=== PATIENT | female | born 1980 | race Caucasian/White ===

== ENCOUNTER 2017-04-07 06:00 | Inpatient (IN) | payer OTHER ==
[2017-04-07] MEDS ORDERED: EPSOM SALT 454 GM TP PRN (06:43)
[2017-04-07] MEDS ORDERED: AMPICILLIN SODIUM 2 GM in NS 100 ML IV ONE (06:43)
[2017-04-07] MEDS ORDERED: OXYTOCIN/RINGERS LACTATE 1,000 ML IV PRN (06:43)
[2017-04-07] MEDS ORDERED: LR 1,000 ML IV PRN (06:43)
[2017-04-07] MEDS ORDERED: TERBUTALINE SULFATE 1 MG/ML VIAL IV PRN (06:43)
[2017-04-07] MEDS ORDERED: OLIVE OIL 118 ML BTL MISC PRN (06:43)
[2017-04-07 07:03] LABS: % IMMATURE GRANULYOCYTES 0.8 % (0.0-1.1); ABSOLUTE IMMATURE GRANULOCYTES 0.09 10^3/uL (0.00-0.10); ADD DIFF? NO; ADD MORPH? NO; ADD SCAN? NO; ATYPICAL LYMPHOCYTE FLAG 0 (0-99); FRAGMENT RBC FLAG 0 (0-99); HEMATOCRIT 37.8 % (38.0-47.0); HEMOGLOBIN 13.1 g/dL (12.6-16.3); LEFT SHIFT FLG 0 (0-99); LIPEMIA HEMOLYSIS FLAG 90 (0-99); MEAN CELL HEMOGLOBIN CONCENTR. 34.7 g/dL (32.4-36.7); MEAN CELL VOLUME 95.2 fL (81.5-99.8); MEAN PLATELET VOLUME 9.5 fL (8.7-11.7); PLATELET CLUMPS FLAG 0 (0-99); PLATELET COUNT 139 10^3/uL (150-400); RED BLOOD CELL COUNT 3.97 10^6/uL (4.18-5.33); RED CELL DISTRIBUTION WIDTH 13.3 % (11.5-15.2)
[2017-04-07] MEDS ORDERED: OXYTOCIN/LR *STANDARD DOSE PROTOCOL IV SCH (07:30)
[2017-04-07] MEDS: AMPICILLIN SODIUM 1 GM in NS 100 ML IV SCH ×3 (11:12→19:17)
[2017-04-07] MEDS ORDERED: fentanYL 4MCG/ML/BUP 0.0625% RTU 250 ML BAG EP ONE (12:27)
[2017-04-07] MEDS ORDERED: fentaNYL 100 MCG/2 ML INJ ONE ×2 (12:27→21:32)
[2017-04-07] MEDS ORDERED: PHENYLEPHRINE HCL 100 MCG/ML SYR ONE ×2 (12:28→19:45)
[2017-04-07] MEDS ORDERED: BUPIVACAINE 0.25% 30 ML SDV ONE (12:28)
--- NOTE | 2017-04-07 13:25 | OBPROG ---
OBG Labor Progress Note Assessment/Plan: Assessment: Plan: Subjective: patient comfortable with epidural. AROM - large amount of clear fluid noted. IUPC placed. pitocin at 15 mu. Objective: 04/07/17 06:43 Patient ABO/Rh A NEGATIVE 04/07/17 06:39 - SVE Dilation (cm): 3 Effacement (%): 75 Station: -2 Cherry Current Contraction Pattern: Regular FHR Pattern Variability: Moderate FHR Category: 1 Membranes: AROM Amniotic Fluid Color: Clear - Procedures Non-surgical Procedures: IUPC Oxytocin Orders Assessment - Pre-Induction/Augmentation Assessment Gestational Age: 39 week(s) and 6 day(s) ICD10 Worksheet Patient Problems: Problems Problem Status Onset PPH ( hemorrhage) Acute Post-dates Acute (spontaneous vaginal delivery) Acute
--- NOTE | 2017-04-07 14:19 | GHP ---
[f rep st] HISTORY AND PHYSICAL DATE OF ADMISSION: 04/07/2017 ADMISSION DIAGNOSES: 1. Intrauterine at 39-6/7 weeks' gestation. 2. GBS positive. 3. Desires elective induction. 4. History of retained placenta and hemorrhage. INDICATIONS: Patient is a 37-year-old 3, para 1-0-1-1, who is 39-6/7 weeks' gestation. She has been followed with this for size less than dates. Her most recent ultrasound, her es timated weight was in the 98th percentile with a BPD in the 98th percentile, abdominal circumf erence of 98% percentile, and femoral length 52nd percentile. Patient is 3 cm dilated, 70% effaced, and -3 station and ballotable. She is requesting elective induction of labor for multiple reasons. Patient has been admitted and started on Pitocin. She had received an epidural, which was decided providing adequate pain relief, and her membranes have just been artificially ruptured. PAST MEDICAL HISTORY: History of cervical dysplasia x1. Mild exercise-induced asthma. History of pyelonephritis x2. History of anxiety. MEDICATIONS: vitamins and GHA. SURGICAL HISTORY: [place] tooth extraction, D and C x2, oral surgery. ALLERGIES: Antibiotic she cannot remember the name of, which was used for acne. SOCIAL HISTORY: Patient is . She lives with her . 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 She denies tobacco, alcohol, or drug use. FAMILY MEDICAL HISTORY: Noncontributory. LEHR CUTTER HISTORY: Menarche age 13. Periods every 28 days. She is a 3, para 1-0-1-1. In 2013, she had a spontaneous vaginal delivery of an 8 pounds, 8 ounce female infant at 41 weeks' gest ation. She had an uncomplicated delivery and ; however, she did have a retained placenta w hich necessitated manual removal via D and C, and she had hemorrhage following that. In 09/2015, she had a missed at 6 weeks. She had a D and C after Cytotec failed and she still had retained products of conception. Her current has been uncomplicated with exception o f large for gestational age. Patient does have a remote history of abnormal Pap smear. She had a c olposcopy, but no procedures were done. She does have a history of HPV but denies any history of an y other sexually transmitted diseases. REVIEW OF SYSTEMS: 10-point review of systems is negative. PHYSICAL EXAMINATION: VITAL SIGNS: Stable. GENERAL APPEARANCE: She is alert and oriented x3. Ne uro: Unremarkable. NECK: Unremarkable. HEART: Rate is regular. LUNGS: Clear to auscultation b ilaterally. ABDOMEN: Gravid, nondistended, nontender. EXTREMITIES: Reveal no calf tenderness or edema. PELVIC: She is 3 cm dilated, 70% effaced, and -2 station. Infant is in the vertex presenta tion with heart tracings in the category 1. She is now rubia every 3 minutes. LABORATORY DATA: Patient's labs: Blood type is A negative. Antibody screen negative. Ru nadira immune. GBS positive. HBsAg negative. HIV negative. Her 50 g glucose was 99. ASSESSMENT AND PLAN: A 37-year-old, 3, para 1-0-1-1, who was 39-6/7 weeks' gestation, prese [facility] for elective induction of labor. She has been started on Pitocin. She had artificial rupture o f membranes and has an epidural. We will manage her expectantly. /[id number]/MODL
[2017-04-07] MEDS: ONDANSETRON 4 MG/2 ML VIAL IVP PRN (15:16)
--- NOTE | 2017-04-07 16:48 | OBPROG ---
OBG Labor Progress Note Assessment/Plan: Assessment: Plan: Subjective: patient feels flu like. got zofran for nausea. was feeling more pressure. SVE 5/80/-2. positive scalp stimulation. occasional early decelerations. patient pushed bolus button. will recheck in 2 hours or sooner if indicated. Objective: 04/07/17 06:43 Patient ABO/Rh A NEGATIVE 04/07/17 06:39 - SVE Dilation (cm): 5 Effacement (%): 80 Station: -2 Cherry Current Contraction Pattern: Regular FHR Pattern Variability: Moderate FHR Category: 2 Membranes: AROM Amniotic Fluid Color: Clear - Procedures Non-surgical Procedures: IUPC Oxytocin Orders Assessment - Pre-Induction/Augmentation Assessment Gestational Age: 39 week(s) and 6 day(s) ICD10 Worksheet Patient Problems: Problems Problem Status Onset PPH ( hemorrhage) Acute Post-dates Acute (spontaneous vaginal delivery) Acute
[2017-04-07] MEDS ORDERED: AMMONIA AROMATIC 1 EACH AMP IH ONE (18:40)
[2017-04-07] MEDS ORDERED: OLIVE OIL 118 ML BTL ONE (18:40)
[2017-04-07] MEDS ORDERED: LIDOCAINE 1% 300 MG/30 ML SDV ONE (18:40)
[2017-04-07] MEDS ORDERED: MISOPROSTOL 200 MCG TAB ONE ×2 (18:41→20:15)
[2017-04-07] MEDS ORDERED: TERBUTALINE SULFATE 1 MG/ML VIAL ONE (18:41)
[2017-04-07] MEDS ORDERED: METHYLERGONOVINE MAL 0.2 MG/ML INJ ONE ×3 (19:22→19:41)
[2017-04-07] MEDS ORDERED: ALBUMIN 5% 500 ML BOTTLE IV ONE ×4 (19:33→20:43)
[2017-04-07] MEDS ORDERED: KETAMINE 100 MG/10 ML SYR ONE (20:00)
[2017-04-07] MEDS ORDERED: MIDAZOLAM 2 MG/2 ML VIAL ONE (20:01)
[2017-04-07] MEDS ORDERED: OXYTOCIN 10 UNIT/ML VIAL ONE (20:02)
[2017-04-07] MEDS ORDERED: PROPOFOL/EMULSION 500 MG/50 ML BOTTLE IV ONE (20:18)
[2017-04-07] MEDS ORDERED: ROCURONIUM 50 MG/5 ML VIAL ONE ×2 (20:21)
[2017-04-07] MEDS ORDERED: CEFAZOLIN 2 GM/DEXTROSE/100 ML BAG IV ONE ×2 (20:38→23:02)
[2017-04-07 21:27] LABS: ABSOLUTE NRBC COUNT 0.03 10^3/uL (0-0.01); ADD DIFF? YES; ADD MORPH? YES; ATYPICAL LYMPHOCYTE FLAG 0 (0-99); FRAGMENT RBC FLAG 0 (0-99); LIPEMIA HEMOLYSIS FLAG 80 (0-99); MEAN CELL HEMOGLOBIN 31.7 pg (27.9-34.1); MEAN CELL HEMOGLOBIN CONCENTR. 32.8 g/dL (32.4-36.7); MEAN CELL VOLUME 96.7 fL (81.5-99.8); MEAN PLATELET VOLUME 9.7 fL (8.7-11.7); NRBC-AUTO% 0.1 % (0.0-0.2); PLATELET CLUMPS FLAG 10 (0-99); PLATELET COUNT 107 10^3/uL (150-400); RED BLOOD CELL COUNT 1.83 10^6/uL (4.18-5.33); RED CELL DISTRIBUTION WIDTH 15.7 % (11.5-15.2)
[2017-04-07 21:31] LABS: ADD SCAN? NO; LEFT SHIFT FLG 250 (0-99)
[2017-04-07 21:33] LABS: HEMOGLOBIN 5.8 g/dL (12.6-16.3); INR 2.52 (0.83-1.16); PROTIME(PATIENT) 27.4 SEC (12.0-15.0)
[2017-04-07 21:34] LABS: APTT 77.7 SEC (23.0-38.0); HEMATOCRIT 17.7 % (38.0-47.0)
[2017-04-07 21:35] LABS: ALANINE AMINOTRANSFERASE 16 IU/L (9-52); ALBUMIN 1.8 g/dL (3.5-5.0); ALKALINE PHOSPHATASE 34 IU/L (38-126); ANION GAP 13 mEq/L (8-16); ASPARTATE AMINOTRANSFERASE 22 IU/L (14-46); BILIRUBIN,TOTAL 1.2 mg/dL (0.1-1.4); CALCIUM 6.4 mg/dL (8.5-10.4); CARBON DIOXIDE 13 mEq/l (22-31); CHLORIDE 108 mEq/L (97-110); CREATININE 0.7 mg/dL (0.6-1.0); GLOMERULAR FILTRATION RATE > 60; GLUCOSE 233 mg/dL (70-100); PLATELET COUNT 107 10^3/uL (150-400); POTASSIUM 3.9 mEq/L (3.5-5.2); SODIUM 134 mEq/L (134-144); TOTAL PROTEIN 3.2 g/dL (6.3-8.2)
[2017-04-07 21:54] LABS: PLATELET ESTIMATE DECREASED (ADEQ); POLYCHROMASIA 1+
[2017-04-07] MEDS ORDERED: CALCIUM CHLORIDE 1 GM/10 ML INJ ONE (22:22)
[2017-04-07] MEDS ORDERED: PHENYLEPHRINE 10 MG/ML SDV ONE (22:23)
[2017-04-07] MEDS ORDERED: PETROLAT,WHT/MIN OIL/SOD CHL 3.5 GM OPHT.OINT ONE (22:23)
[2017-04-07] MEDS ORDERED: LIDO/EPI 2% **for epidural** 20 ML SDV ONE (22:23)
[2017-04-07 22:27] LABS: FIBRINOGEN < 60 mg/dL (214-456)
[2017-04-07 22:30] LABS: ABSOLUTE NRBC COUNT 0.09 10^3/uL (0-0.01); ADD DIFF? YES; ADD MORPH? NO; ATYPICAL LYMPHOCYTE FLAG 0 (0-99); FRAGMENT RBC FLAG 0 (0-99); HEMATOCRIT 29.7 % (38.0-47.0); LIPEMIA HEMOLYSIS FLAG 80 (0-99); MEAN CELL HEMOGLOBIN 30.7 pg (27.9-34.1); MEAN CELL HEMOGLOBIN CONCENTR. 33.7 g/dL (32.4-36.7); MEAN CELL VOLUME 91.1 fL (81.5-99.8); MEAN PLATELET VOLUME 9.6 fL (8.7-11.7); NRBC-AUTO% 0.3 % (0.0-0.2); PLATELET CLUMPS FLAG 0 (0-99); PLATELET COUNT 113 10^3/uL (150-400); RED BLOOD CELL COUNT 3.26 10^6/uL (4.18-5.33); RED CELL DISTRIBUTION WIDTH 16.2 % (11.5-15.2)
[2017-04-07 22:32] LABS: LEFT SHIFT FLG 180 (0-99)
[2017-04-07 22:33] LABS: ADD SCAN? NO
[2017-04-07 22:35] LABS: PLATELET COUNT 113 10^3/uL (150-400)
[2017-04-07 22:41] LABS: ALANINE AMINOTRANSFERASE 38 IU/L (9-52); ALBUMIN 2.4 g/dL (3.5-5.0); ALKALINE PHOSPHATASE 68 IU/L (38-126); ANION GAP 11 mEq/L (8-16); ASPARTATE AMINOTRANSFERASE 51 IU/L (14-46); BILIRUBIN,TOTAL 1.7 mg/dL (0.1-1.4); CALCIUM 7.5 mg/dL (8.5-10.4); CARBON DIOXIDE 18 mEq/l (22-31); CHLORIDE 106 mEq/L (97-110); CREATININE 0.7 mg/dL (0.6-1.0); GLOMERULAR FILTRATION RATE > 60; GLUCOSE 207 mg/dL (70-100); POTASSIUM 4.6 mEq/L (3.5-5.2); SODIUM 135 mEq/L (134-144); TOTAL PROTEIN 4.2 g/dL (6.3-8.2)
[2017-04-07 22:43] LABS: INR 1.77 (0.83-1.16)
[2017-04-07 22:50] LABS: FIBRINOGEN 119 mg/dL (214-456)
[2017-04-07 23:25] LABS: PLATELET ESTIMATE DECREASED (ADEQ); POLYCHROMASIA 1+
[2017-04-07 23:27] LABS: PROTIME(PATIENT) 20.7 SEC (12.0-15.0)
[2017-04-07] MEDS ORDERED: ONDANSETRON 4 MG/2 ML VIAL ONE (23:34)
[2017-04-08] MEDS ORDERED: NALOXONE HCL 0.4 MG/ML INJ IVP PRN ×2 (00:05→00:18)
[2017-04-08] MEDS ORDERED: DOCUSATE SODIUM 100 MG CAP PO PRN (00:07)
[2017-04-08] MEDS ORDERED: POLYETHYLENE GLYCOL 3350 17 GM PKT PO PRN (00:07)
[2017-04-08] MEDS ORDERED: BISACODYL 10 MG SUPP PR PRN (00:07)
[2017-04-08] MEDS ORDERED: MAGNESIUM HYDROXIDE 30 ML UDCUP PO PRN (00:07)
[2017-04-08] MEDS ORDERED: LACTULOSE 20 GM/30 ML UDCUP PO PRN (00:07)
[2017-04-08] MEDS ORDERED: HYDROmorphONE/DILAUDID 1 MG/ML SYR IVP PRN ×2 (00:18)
[2017-04-08] MEDS ORDERED: fentaNYL 100 MCG/2 ML INJ IVP PRN ×2 (00:18)
[2017-04-08] MEDS ORDERED: OXYCODONE/APAP 5/325 TAB PO PRN (00:18)
[2017-04-08] MEDS ORDERED: ONDANSETRON 4 MG/2 ML VIAL IVP PRN (00:18)
[2017-04-08] MEDS: HYDROmorphONE/DILAUDID 6 MG/30 ML PCA IV PRN (00:28)
--- NOTE | 2017-04-08 00:36 | POSTANESTH ---
Post Anesthetic Evaluation Cardiovascular Status: Other, See Comment Respiratory Status: Other, See Comment Level of Consciousness/Mental Status: Can Participate in Eval Pain Control: Inadeq, Add Tx Required Nausea/Vomiting Control: Adequate, Prn Tx Ordered Complications Possibly Related to Anesthesia: None Noted (Awake and talking in ICU after 4 liter blood loss and large transfusion. Bp stable in low 90's syst. SpO2 99 on 3lpm nc. HR 88. Has received 100mcg fentanyl and 7 mg morphine IV in addition to 3mg of epidural PF-morphine. Still having significant pain. Additional boluses and DISEASE CONTROL INSPECTOR ordered by OB. Epidural is still in place but concerned about dropping BP if reactivated. Report to INSTRUMENT MAKER.)
--- NOTE | 2017-04-08 00:41 | OBDEL ---
Info Type: Vaginal GBS+: Yes Antibiotic Used for + GBS: Ampicillin Number of Antibiotic Doses Given: 4 Indications for Delivery: Elective Vaginal Delivery - Labor and Delivery Onset of Contractions Date: 04/07/17 Onset of Contractions Time: 11:30 Onset of Contractions Type: Induced Rupture of Membranes Date: 04/07/17 Rupture of Membranes Time: 13:15 Rupture of Membranes Type: Artificial Amniotic Fluid Color: Clear Dilation Complete Date: 04/07/17 Dilation Complete Time: 19:48 Placenta Delivery Date: 04/07/17 Placenta Delivery Time: 19:19 Total Hours of Labor: 7 Non-surgical Procedures: IUPC Laceration: 1st Degree Repair: 3-0 Vaginal Sponge Count Correct: Yes Vaginal Needle Count Correct: Yes Vaginal Sweep Performed: Yes EBL: 4500 Delivery Events: Post Hemorrhage, Retained Placenta Delivery Comment: significant post hemorrhage due to retained placenta. patient taken to the or. suction d and c. backeri balloon placed. bleeding continued. not stable enough to be taken to interventional radiology for uterine artery embolization. abdominal supracervical hysterectomy and cystoscopy done. patient to the ICU - Medications Labor Augmentation/Induction Methods Used: Pitocin Labor Augmentation/Induction Indication: Elective Data Cherry Delivery Date: 04/07/17 Delivery Time: 18:59 SHELBY: 04/08/17 Gestational Age: 40 week(s) and 4 day(s) Sex of : Female Score (1 Min): 8 Score (5 Min): 9 ICD10 Worksheet Patient Problems: Problems Problem Status Onset PPH ( hemorrhage) Acute Post-dates Acute (spontaneous vaginal delivery) Acute
[2017-04-08] MEDS ORDERED: LR 1,000 ML IV SCH (01:00)
[2017-04-08 01:15] LABS: ADD DIFF? YES; ADD MORPH? NO; ATYPICAL LYMPHOCYTE FLAG 0 (0-99); FRAGMENT RBC FLAG 0 (0-99); HEMATOCRIT 23.4 % (38.0-47.0); HEMOGLOBIN 8.3 g/dL (12.6-16.3); LIPEMIA HEMOLYSIS FLAG 90 (0-99); MEAN CELL HEMOGLOBIN 30.7 pg (27.9-34.1); MEAN CELL HEMOGLOBIN CONCENTR. 35.5 g/dL (32.4-36.7); MEAN CELL VOLUME 86.7 fL (81.5-99.8); MEAN PLATELET VOLUME 9.4 fL (8.7-11.7); PLATELET CLUMPS FLAG 10 (0-99); RED CELL DISTRIBUTION WIDTH 15.9 % (11.5-15.2)
[2017-04-08 01:17] LABS: ADD SCAN? NO; LEFT SHIFT FLG 280 (0-99); PLATELET COUNT 46 10^3/uL (150-400)
[2017-04-08 01:19] LABS: PLATELET COUNT 46 10^3/uL (150-400)
[2017-04-08 01:24] LABS: INR 1.55 (0.83-1.16); PROTIME(PATIENT) 18.6 SEC (12.0-15.0)
[2017-04-08 01:25] LABS: APTT 38.5 SEC (23.0-38.0); FIBRINOGEN 179 mg/dL (214-456)
[2017-04-08 02:04] LABS: PLATELET ESTIMATE DECREASED (ADEQ)
[2017-04-08 02:05] LABS: POLYCHROMASIA 1+
[2017-04-08 06:24] LABS: ADD MORPH? NO; ATYPICAL LYMPHOCYTE FLAG 0 (0-99); FRAGMENT RBC FLAG 0 (0-99); HEMATOCRIT 20.3 % (38.0-47.0); HEMOGLOBIN 7.4 g/dL (12.6-16.3); LIPEMIA HEMOLYSIS FLAG 90 (0-99); MEAN CELL HEMOGLOBIN 30.5 pg (27.9-34.1); MEAN CELL HEMOGLOBIN CONCENTR. 36.5 g/dL (32.4-36.7); MEAN CELL VOLUME 83.5 fL (81.5-99.8); MEAN PLATELET VOLUME 10.2 fL (8.7-11.7); PLATELET CLUMPS FLAG 30 (0-99); PLATELET COUNT 62 10^3/uL (150-400); RED BLOOD CELL COUNT 2.43 10^6/uL (4.18-5.33); RED CELL DISTRIBUTION WIDTH 16.2 % (11.5-15.2)
[2017-04-08 06:25] LABS: LEFT SHIFT FLG 100 (0-99)
[2017-04-08 06:26] LABS: ADD DIFF? YES; ADD SCAN? NO
[2017-04-08 06:27] LABS: PLATELET COUNT 62 10^3/uL (150-400)
[2017-04-08 06:32] LABS: INR 1.42 (0.83-1.16); PROTIME(PATIENT) 17.3 SEC (12.0-15.0)
[2017-04-08 06:33] LABS: APTT 34.7 SEC (23.0-38.0); FIBRINOGEN 212 mg/dL (214-456)
[2017-04-08 06:41] LABS: ALANINE AMINOTRANSFERASE 53 IU/L (9-52); ALBUMIN 2.2 g/dL (3.5-5.0); ALKALINE PHOSPHATASE 31 IU/L (38-126); ANION GAP 6 mEq/L (8-16); ASPARTATE AMINOTRANSFERASE 76 IU/L (14-46); CALCIUM 7.8 mg/dL (8.5-10.4); CARBON DIOXIDE 21 mEq/l (22-31); CHLORIDE 106 mEq/L (97-110); CREATININE 0.6 mg/dL (0.6-1.0); GLOMERULAR FILTRATION RATE > 60; GLUCOSE 89 mg/dL (70-100); SODIUM 133 mEq/L (134-144); TOTAL PROTEIN 3.9 g/dL (6.3-8.2)
[2017-04-08] MEDS ORDERED: CEPACOL LOZENGE PO ONE (06:44)
[2017-04-08 06:52] LABS: PLATELET ESTIMATE DECREASED (ADEQ); POLYCHROMASIA 1+; ROULEAUX PRESENT
[2017-04-08] MEDS ORDERED: CEPACOL LOZENGE PO PRN (07:36)
[2017-04-08] MEDS: ALPRAZolam 0.5 MG TAB PO SCH ×2 (09:36→20:07)
[2017-04-08] MEDS: SENNOSIDES/DOCUSATE SODIUM TAB PO SCH ×2 (09:36→20:07)
--- NOTE | 2017-04-08 09:47 | SOAPPROG ---
SOAP Progress Note Assessment/Plan: Assessment: 37 yo ppd/POD# 1s/p followed by abdominal supracervical hysterectomy for massive post hemorrhage in ICU anemia - stable pumping rh negative - baby rh positive Plan: repeat cbc in 3 hours - if labs and vitals are stable- transfer to mom baby iron close observation 04/08/17 09:47 Subjective: patient is doing well. is still in ICU. baby and are with her. has started pumping. is sore but pain is controlled with CHARGE ENTRY. patient hasn't slept since getting to ICU. patient very grateful. good urine output. minimal bleeding. Objective: Vital Signs Temp Pulse Resp BP Pulse Ox 36.6 C 80 16 90/56 L 98 04/08/17 07:00 04/08/17 08:00 04/08/17 08:00 04/08/17 08:00 04/08/17 08:00 Laboratory Results 04/08/17 06:15 04/08/17 06:15 04/07/17 04/08/17 04/09/17 05:59 05:59 05:59 Intake Total 9985 1000 Output Total 5170 1250 Balance 4815 -250 PT 17.3 SEC (12.0-15.0) H 04/08/17 06:15 INR 1.42 (0.83-1.16) H 04/08/17 06:15 Physical Exam - Physical Exam General Appearance: WD/WN, alert, no apparent distress Neck: non-tender, full range of motion, supple Respiratory: chest non-tender, lungs clear, normal breath sounds Cardiac/Chest: normal peripheral pulses, regular rate, rhythm Abdomen: normal bowel sounds, non-tender, soft Skin: normal color, warm/dry Extremities: normal range of motion, non-tender, normal inspection, normal capillary refill Neuro/Psych: no motor/sensory deficits, alert, normal mood/affect, oriented x 3 ICD10 Worksheet Patient Problems: Problems Problem Status Onset PPH ( hemorrhage) Acute Post-dates Acute (spontaneous vaginal delivery) Acute
[2017-04-08 12:51] LABS: ADD MORPH? YES; ADD SCAN? YES; ATYPICAL LYMPHOCYTE FLAG 0 (0-99); FRAGMENT RBC FLAG 0 (0-99); LIPEMIA HEMOLYSIS FLAG 90 (0-99); MEAN CELL HEMOGLOBIN 31.4 pg (27.9-34.1); MEAN CELL HEMOGLOBIN CONCENTR. 37.4 g/dL (32.4-36.7); MEAN CELL VOLUME 84.1 fL (81.5-99.8); MEAN PLATELET VOLUME 9.9 fL (8.7-11.7); PLATELET CLUMPS FLAG 0 (0-99); PLATELET COUNT 55 10^3/uL (150-400); RED BLOOD CELL COUNT 2.07 10^6/uL (4.18-5.33); RED CELL DISTRIBUTION WIDTH 16.6 % (11.5-15.2)
[2017-04-08 12:55] LABS: HEMOGLOBIN 6.5 g/dL (12.6-16.3); LEFT SHIFT FLG 160 (0-99)
[2017-04-08 12:59] LABS: HEMATOCRIT 17.4 % (38.0-47.0)
[2017-04-08 13:00] LABS: INR 1.33 (0.83-1.16); PROTIME(PATIENT) 16.5 SEC (12.0-15.0)
[2017-04-08 13:13] LABS: APTT 31.4 SEC (23.0-38.0)
[2017-04-08 13:15] LABS: FIBRINOGEN 221 mg/dL (214-456)
[2017-04-08 13:44] LABS: ADD DIFF? YES; SCAN POSITIVE
[2017-04-08 13:52] LABS: PLATELET ESTIMATE DECREASED (ADEQ)
--- NOTE | 2017-04-08 14:07 | POSTANESTH ---
Post Anesthetic Evaluation Cardiovascular Status: Other, See Comment Respiratory Status: Other, See Comment Level of Consciousness/Mental Status: Can Participate in Eval Pain Control: Adequate, Prn Tx Ordered Nausea/Vomiting Control: Adequate, Prn Tx Ordered Complications Possibly Related to Anesthesia: None Noted (Anesthesia followup note: Stable in ICU. Coag parameters starting to improve. Platelets still low but may or may not need supplementation (per OB). VSS. Awake and talking.)
--- NOTE | 2017-04-08 15:29 | SOAPPROG ---
SOAP Progress Note Assessment/Plan: Assessment: 37 yo ppd/POD# 1s/p followed by abdominal supracervical hysterectomy for massive post hemorrhage in ICU anemia - symptomatic pumping rh negative - baby rh positive Plan: transfuse 2 units prbcs recheck labs after transfusion and in am iron close observation 04/08/17 15:21 Subjective: patient is feeling exhausted and requested a transfusion. labs reviewed. hct and platelets have decreased. discussed with neon sign servicer - will just transfuse prbcs, Bible Teacher doesnt feel she needs platelets at this time. no vaginal bleeding noted in the last several hours. abdomen is soft and non tender. pain overall controlled. patients primary complaint is headache and fatigue. was able to sleep a small amount but was having short apnic events. long discussion with patient and her about yesterday and next steps. Objective: Vital Signs Temp Pulse Resp BP Pulse Ox 36.6 C 56 L 11 L 112/51 L 96 04/08/17 12:00 04/08/17 15:00 04/08/17 15:00 04/08/17 15:00 04/08/17 15:00 Laboratory Results 04/08/17 12:35 04/08/17 06:15 04/07/17 04/08/17 04/09/17 05:59 05:59 05:59 Intake Total 9985 2850 Output Total 5170 2200 Balance 4815 650 PT 16.5 SEC (12.0-15.0) H 04/08/17 12:35 INR 1.33 (0.83-1.16) H 04/08/17 12:35 Physical Exam - Physical Exam General Appearance: WD/WN, alert, no apparent distress, other (sleepy) Neck: non-tender, full range of motion, supple Respiratory: chest non-tender, lungs clear, normal breath sounds Cardiac/Chest: normal peripheral pulses, regular rate, rhythm Abdomen: normal bowel sounds, non-tender, soft Pelvic Exam: deferred Skin: normal color, warm/dry, other (incision ) Extremities: normal range of motion, non-tender, normal inspection, normal capillary refill Neuro/Psych: no motor/sensory deficits, alert, normal mood/affect, oriented x 3 ICD10 Worksheet Patient Problems: Problems Problem Status Onset PPH ( hemorrhage) Acute Post-dates Acute (spontaneous vaginal delivery) Acute
[2017-04-08] MEDS: ONDANSETRON 4 MG/2 ML VIAL IVP PRN (16:10)
[2017-04-08] MEDS: HYDROCODONE/APAP 5/325 TAB PO PRN (16:11)
[2017-04-08] MEDS ORDERED: PROMETHAZINE HCL 25 MG/ML INJ IVP PRN (17:04)
[2017-04-08] MEDS ORDERED: METOCLOPRAMIDE 10 MG/2 ML VIAL IVP PRN (17:05)
[2017-04-08 19:31] LABS: PLATELET COUNT 55 10^3/uL (150-400)
[2017-04-08] MEDS: IBUPROFEN 600 MG TAB PO PRN (20:30)
--- NOTE | 2017-04-08 21:14 | GCON ---
[f rep st] CONSULTATION PULMONARY CRITICAL CARE CONSULTATION DATE OF CONSULTATION: 04/08/2017 REASON FOR CONSULTATION: hemorrhage. HISTORY: The patient is a 37-year-old who was admitted yesterday for a normal delivery at 40 weeks. She was 3 cm dilated on admission. Membranes were ruptured and she eventually delivered after a t otal labor time of 7 hours. She then had a hemorrhage secondary to retained placenta. E stimated blood loss of 4,500 mL. She was taken to the operating room where an abdominal hysterectom y was performed. She was given blood and blood products and subsequently admitted to the intensive care unit. She received 6 units of packed red blood cells, 5 units of fresh frozen plasma, 2 units of platelets, and 1 pooled cryoprecipitate. Her lowest hematocrit was 17 with a hemoglobin of 5.8. Platelets fell to 46. They have come back up to approximately 60,000. Fibrinogen dropped to less than 60. It has subsequently come back up post resuscitation to a normal value of 221. INR was ini tially elevated at 2.52. Her latest INR is 1.33. She is doing well hemodynamically. She complains of nausea. She complains of fatigue and generaliz ed weakness. She is receiving 1 more unit of blood currently for her latest hemoglobin of 6.5 and h ematocrit of 17.4. PAST MEDICAL HISTORY: Remarkable for mild exercise induced asthma, previous pyelonephritis, and anx iety. PAST SURGICAL HISTORY: She has had no significant previous surgeries, D and C x2. SOCIAL HISTORY: . 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 Tobacco and alco hol are denied. FAMILY HISTORY: Noncontributory. REVIEW OF SYSTEMS: Negative for heart disease, lung disease, thromboembolic disease, bleeding probl ems, or other significant issues. MEDICATIONS: She takes melatonin at home to help her sleep. She is on no medications other than pr enatal vitamins, etc. DRUG ALLERGIES: No listed drug allergies. She may have been allergic to an unknown antibiotic when she was younger her about that. PHYSICAL EXAMINATION: GENERAL: Reveals a woman who is lying comfortably in bed. She appears somew hat pale. Blood pressure is 112/51, heart rate 60 with sinus rhythm on the monitor. On 2 L, satura tions are 96%. Respiratory rate is 16. She is afebrile. HEENT: Unremarkable for lymphadenopathy or thyromegaly. There is no jugular venous distention. Mucous membranes are mildly dry. CHEST: C lear bilaterally. Excursions are good. HEART: Regular in rate and rhythm without significant murm urs or gallops. P2 is normal. ABDOMEN: Mildly distended, nontender superiorly, and bowel sounds a re hypoactive. A Oakley catheter is in place. Urine output is excellent. EXTREMITIES: Unremarkabl e for significant edema. There are no cords, no tenderness. NEUROLOGIC: Nonfocal. Cognition is i ntact. DATABASE: Hematologic values are as noted in the HPI. The most recent studies, approximately 4 micah rs ago, showed a white blood cell count of 12,000, hemoglobin 6.5, hematocrit 17.4, platelet count o f 55,000. INR 1.33, fibrinogen 221. Chemistries this morning showed a sodium of 133, CO2 21, BUN 1 1 with a creatinine is 0.6. Glucose was normal. Bilirubin 1.0. AST and ALT were mildly elevated a t 76 and 53 respectively. Albumin 2.2. ASSESSMENT: 1. Acute blood-loss anemia. 2. hemorrhage secondary to retained placenta. Status post hysterectomy. 3. Transient disseminated intravascular coagulation versus dilutional coagulation abnormalities. T hese are improving. Thrombocytopenia has improved. 4. Hyponatremia. 5. Mildly elevated AST and ALT. 6. Nausea. The patient is taking p.o., has not yet passed gas. PLAN AND RECOMMENDATIONS: The patient will be kept in the intensive care unit. Further blood is be ing given. H and H will be followed. Platelets will be followed. There is no current indication f or further platelet transfusion as she is at no risk for spontaneous bleeding with her current plate let count. DIC panel to be followed intermittently. Intravenous fluids will be continued. Appropr iate pain control and antiemetics will be given. Further plans and recommendations will be made based on her progress over the next 12-24 hours. /[id number]/MODL
[2017-04-08 21:50] LABS: % IMMATURE GRANULYOCYTES 0.6 % (0.0-1.1); ABSOLUTE IMMATURE GRANULOCYTES 0.08 10^3/uL (0.00-0.10); ADD DIFF? NO; ADD MORPH? NO; ADD SCAN? NO; ATYPICAL LYMPHOCYTE FLAG 0 (0-99); FRAGMENT RBC FLAG 0 (0-99); HEMATOCRIT 25.9 % (38.0-47.0); HEMOGLOBIN 9.3 g/dL (12.6-16.3); LEFT SHIFT FLG 20 (0-99); LIPEMIA HEMOLYSIS FLAG 90 (0-99); MEAN CELL HEMOGLOBIN 30.6 pg (27.9-34.1); MEAN CELL HEMOGLOBIN CONCENTR. 35.9 g/dL (32.4-36.7); MEAN CELL VOLUME 85.2 fL (81.5-99.8); MEAN PLATELET VOLUME 9.9 fL (8.7-11.7); PLATELET CLUMPS FLAG 20 (0-99); PLATELET COUNT 51 10^3/uL (150-400); RED BLOOD CELL COUNT 3.04 10^6/uL (4.18-5.33); RED CELL DISTRIBUTION WIDTH 15.9 % (11.5-15.2)
--- NOTE | 2017-04-08 23:55 | GOP ---
[f rep st] OPERATIVE REPORT DATE OF OPERATION: 04/05/2017 SURGEON: Natali Moreno DO MANAGER PRODUCT SUPPORT: MD Beti Ellis MD ANESTHESIA: General with endotracheal tube and epidural. ANESTHESIOLOGIST: Vinny Anderson MD PREOPERATIVE DIAGNOSIS: hemorrhage. POSTOPERATIVE DIAGNOSIS: hemorrhage. PROCEDURE PERFORMED: Suction dilation and curettage, exam under anesthesia, placement of Bakri balloon, abdominal supracervical hysterectomy, cystoscopy, and repair of vaginal and periurethral lacerations. FINDINGS: Enlarged atonic uterus with significant hemorrhage. SPECIMENS: 1. Endometrial curettings. 2. Supracervical uterus. ESTIMATED BLOOD LOSS: Between the delivery room and operating room is between 4.5 and 5 L. INDICATIONS: Patient is a 37-year-old 3, now para 2-0-1-2, who was brought in for elective induction of labor at 39-6/7 weeks' gestation. Patient has a history of retained placenta and hemorrhage after her 1st delivery. She had retained placenta after a spontaneous . She was brought in for elective induction at 39-6/7 weeks' gestation to hopefully have control over time of delivery because of that history. Patient had an uncomplicated spontaneous vaginal delivery of a 9-pound 6-ounce female infant on the evening of 04/07. The baby was [id number] with mom and doing well. They had requested delayed cord clamping until the umbilical cord had stopped pulsating. At approximately 15-20 minutes following delivery of the baby the umbilical cord was still pulsating, so we discussed and at that time the cord was clamped and cut. The Pitocin was turned off and gentle traction was used on the umbilical cord to help deliver placenta. 30 minutes after delivery, a manual extraction of the placenta was attempted. The majority of the placenta was adherent to the anterior and fundal and posterior wall of the uterus. Majority of the placenta was able to be and sweep after revealed a piece of placenta was still adherent to the posterior wall of the uterus. This was removed without much difficulty and Pitocin was then started. The patient began having heavier than the normal vaginal bleeding. She was given Cytotec and Pitocin already was in place. Bilateral uterine massage was performed. There appeared to be 1 area in the right lateral cornual region of the uterus which felt like either remaining placental fragments or a defect in the myometrium. A bedside curettage was performed and no additional products of conception were felt. It was felt that the bleeding was most likely coming from this rent in the myometrium. She was given ultimately 2 doses of Methergine. Her bleeding was substantially decreased and the uterus was very firm, and then she started bleeding again. After a period of time, patient was having persistent vaginal bleeding that would substantially decrease and then increase again. Estimated blood loss in the delivery room was 1500 to 2 L. A decision was made at that time, after performing a bedside ultrasound and not seeing any obvious retained products of conception or placental tissue, to take patient to the operating room. At that time, patient stated her family status was complete and if I needed to take her uterus out, she would consent to have that done. Her was in agreement. DESCRIPTION OF PROCEDURE: The patient was transported to the operating room. I then called in backup. Mary Lou Weathers, who was on backup then came in, and later on Beti Darby, my partner, came in to help facilitate. They were en route as soon as we were going back to the operating room. The patient was then placed on the operating room table and prepped and draped. A Oakley catheter had been placed in the delivery room. I did a bedside ultrasound, again products of conception were noted. I did a bedside curettage and with suction just to make sure no additional products of conception were noted. That was done with a 14 size curved suction curette. No additional products of conception were noted. She was given additional doses of Cytotec and Methergine and Pitocin but patient started becoming unstable at that time so she was put to sleep. At that time, Dr. Weathers arrived and agreed with the assessment of probable rent in the myometrium. Once I decided to go back to the operating room, Interventional Radiology and the OR were notified for possible need for uterine artery embolization versus hysterectomy and they were notified to come in. We placed a Bakri balloon and the patient had remained stable. By ultrasound, the balloon was in the right position and palpated to be in the right position primarily in the area of bleeding in the right upper portion of the uterus. At that time, I stepped out and talked to her about the wishes of proceeding with Interventional Radiology or going directly to hysterectomy depending on her stability. We were having a brief discussion about that, and at that time I was called back to the OR as the patient's vital signs had started dropping. At that time, because patient was still bleeding aggressively around the Bakri balloon despite its being in its correct placement and as patient was becoming less stable, we decided Interventional Radiology was not a safe option and we decided to proceed with a hysterectomy. The patient was then positioned into the dorsal supine position on the table and she was prepped and draped in the normal sterile fashion. The patient already had general anesthesia at that time. She was given 2 additional grams of Ancef. She had a Oakley catheter in place. A Pfannenstiel skin incision was then made 2 fingerbreadths above the pubic symphysis. The incision was then carried through to the underlying layer of fascia. The fascia was then nicked in the midline and the fascial incision was extended laterally. The rectus muscle was dissected off the fascia. The peritoneum was identified, entered bluntly, and extended. The uterus was then exteriorized. It was noted to be completely pale and atonic. An Randolph O-ring was then inserted into the patient 's abdomen and a bladder blade was then inserted. The round ligament was then identified, clamped and transected, and suture ligated. Care was taken to clamp and transect the utero-ovarian ligaments so they were out of the way. The anterior and posterior leaflet of the broad ligament were dissected at that time. The LigaSure had been brought into the OR, and the anterior and posterior leaflet were dissected with the LigaSure. The bladder flap was created anteriorly. The uterine arteries were then skeletonized, doubly clamped , transected and suture ligated. Attention was then turned to the patient's right side, where the LigaSure was then used to clamp the round ligaments, the utero-ovarian ligaments, and the anterior and posterior leaflet. The uterine arteries were then skeletonized, doubly clamped, transected and suture ligated. Somehow in the manipulation, we did note that there was a defect in the serosa of the uterus that was not present upon entering the uterus initially. That was done when we took down the broad ligament. Clamps were used to clamp across at the level of the internal os and the uterus was amputated from the cervix and the specimen was handed off. 0 Vicryl stitches were used to close the cervical cuff. The patient was noted to most likely be progressing into DIC. She had received 2 units of blood at that time and her hemoglobin was 5.7 after transfusion. Additional blood was ordered as well as platelets, FFP, and cryoprecipitate. The patient had also been given albumin. Bleeding had substantially decreased. However, there was constant oozing from all exposed sites. 3-0 Vicryl stitches were used to reapproximate the serosal edges. Care was taken to evaluate all pedicles and achieve hemostasis on any oozing pedicles. The vaginal cuff continued to have areas of oozing, so 0 Vicryl stitches were used to close the vaginal cuff. The bladder flap and anterior surface of the cervix were noted to have significant oozing. Pressure and cautery and Lam powder were then used to achieve hemostasis. Around this time, Dr. Beti Darby scrubbed in and helped facilitate identifying areas of bleeding and achieving hemostasis. Pressure was applied. Lam was applied, and finally we were agreeable that bleeding was noted to be very minimal and the tissue appeared to be hemostatic. Dr. Weathers scrubbed out as we began closing. We chose not to close the peritoneum or the rectus muscle due to the significant amount of bleeding we had previously not wanting to cause any additional bleeding edges. The fascia was closed with 0 Vicryl in a running, locked fashion. One area of the muscle was noted to be bleeding and hemostasis was achieved with an 0 Vicryl interrupted stitch. The subcutaneous tissue was irrigated and areas of bleeding were cauterized and the subcuticular tissue was reapproximated with 3- 0 Vicryl in a running fashion. The skin was then closed with cristiane. Because there was not time to count prior to the procedure, a flat plate of the abdomen was performed and no instruments or sponges or needles were left inside the patient. After that, cystoscopy was performed after patient was placed in a frog-leg position after her Oakley catheter was removed. Bilateral ureteral jets were noted to be streaming clear urine. The patient was then returned to the dorsal supine position where she was awoken from anesthesia and transported to the ICU. Sponge, lap, and needle count again were not done due to the urgent nature of the surgery, but the x-ray was negative. The patient was in the ICU in stable condition. PRODUCTS GIVEN: During the procedure, the patient received 6 units of packed red blood cells, two 6-packs of platelets, 7 units of fresh-frozen plasma, 1 unit of cryoprecipitate, and 3 bottles of albumin. URINE OUTPUT: 650 cc. /[id number]/MODL MTDD
[2017-04-09] MEDS: HYDROmorphONE/DILAUDID 6 MG/30 ML PCA IV PRN (01:18)
[2017-04-09 04:21] LABS: % IMMATURE GRANULYOCYTES 0.7 % (0.0-1.1); ABSOLUTE IMMATURE GRANULOCYTES 0.09 10^3/uL (0.00-0.10); ADD DIFF? NO; ADD MORPH? NO; ADD SCAN? NO; ATYPICAL LYMPHOCYTE FLAG 0 (0-99); FRAGMENT RBC FLAG 0 (0-99); HEMATOCRIT 25.4 % (38.0-47.0); HEMOGLOBIN 8.9 g/dL (12.6-16.3); LEFT SHIFT FLG 20 (0-99); LIPEMIA HEMOLYSIS FLAG 90 (0-99); MEAN CELL HEMOGLOBIN 30.3 pg (27.9-34.1); MEAN CELL VOLUME 86.4 fL (81.5-99.8); PLATELET CLUMPS FLAG 10 (0-99); PLATELET COUNT 60 10^3/uL (150-400); RED BLOOD CELL COUNT 2.94 10^6/uL (4.18-5.33); RED CELL DISTRIBUTION WIDTH 15.9 % (11.5-15.2)
[2017-04-09 04:37] LABS: ALANINE AMINOTRANSFERASE 65 IU/L (9-52); ALBUMIN 2.2 g/dL (3.5-5.0); ALKALINE PHOSPHATASE 35 IU/L (38-126); ANION GAP 5 mEq/L (8-16); ASPARTATE AMINOTRANSFERASE 62 IU/L (14-46); BILIRUBIN,TOTAL 0.4 mg/dL (0.1-1.4); BILIRUBIN-CONJUGATED 0.1 mg/dL (0.0-0.5); BILIRUBIN-UNCONJUGATED 0.3 mg/dL (0.0-1.1); CALCIUM 7.9 mg/dL (8.5-10.4); CARBON DIOXIDE 22 mEq/l (22-31); CHLORIDE 107 mEq/L (97-110); CREATININE 0.5 mg/dL (0.6-1.0); GLOMERULAR FILTRATION RATE > 60; GLUCOSE 103 mg/dL (70-100); MAGNESIUM 1.6 mg/dL (1.6-2.3); POTASSIUM 3.6 mEq/L (3.5-5.2); SODIUM 134 mEq/L (134-144); TOTAL PROTEIN 4.1 g/dL (6.3-8.2)
[2017-04-09 06:34] LABS: HEMATOCRIT 27.6 % (38.0-47.0); HEMOGLOBIN 9.7 g/dL (12.6-16.3)
[2017-04-09] MEDS: IRON POLYSAC/IRON HEME 28 MG TAB PO SCH ×2 (08:32→20:46)
[2017-04-09] MEDS: SENNOSIDES/DOCUSATE SODIUM TAB PO SCH ×2 (08:32→22:14)
--- NOTE | 2017-04-09 09:58 | SOAPPROG ---
SOAP Progress Note Assessment/Plan: Assessment: 37 yo ppd/POD# 2 s/p followed by abdominal supracervical hysterectomy for massive post hemorrhage in ICU - anemia -asyptomatic after additional 2 units pumping rh negative - baby rh positive Plan: transfer to mom baby increase activity iron close observation 04/09/17 09:56 Subjective: patient is doing much better. pain is well controlled. no vaginal bleeding. denies headache and changes in vision. pumping and getting minimal clostrum. ready to be transferred to mom baby. tolerating diet. will ambulate. long discussion about surgery and next steps. Objective: Vital Signs Temp Pulse Resp BP Pulse Ox 36.7 C 77 15 94/55 L 98 04/09/17 07:28 04/09/17 07:28 04/09/17 07:00 04/09/17 07:28 04/09/17 07:28 Laboratory Results 04/09/17 04:05 04/09/17 04:05 04/08/17 04/09/17 04/10/17 05:59 05:59 05:59 Intake Total 9985 8475 Output Total 5170 6900 Balance 4815 1575 PT 16.5 SEC (12.0-15.0) H 04/08/17 12:35 INR 1.33 (0.83-1.16) H 04/08/17 12:35 Physical Exam - Physical Exam General Appearance: WD/WN, alert, no apparent distress Neck: non-tender, full range of motion, supple Respiratory: chest non-tender, lungs clear, normal breath sounds Cardiac/Chest: normal peripheral pulses, regular rate, rhythm Abdomen: normal bowel sounds, non-tender, soft Skin: normal color, warm/dry Extremities: normal range of motion, non-tender, normal inspection, normal capillary refill, pedal edema Neuro/Psych: no motor/sensory deficits, alert, normal mood/affect, oriented x 3 ICD10 Worksheet Patient Problems: Problems Problem Status Onset PPH ( hemorrhage) Acute Post-dates Acute (spontaneous vaginal delivery) Acute
[2017-04-09] MEDS: ALPRAZolam 0.5 MG TAB PO SCH (10:17)
[2017-04-09] MEDS: HYDROCODONE/APAP 5/325 TAB PO PRN ×5 (10:27→20:49)
--- NOTE | 2017-04-09 11:39 | POSTANESTH ---
Post Anesthetic Evaluation Cardiovascular Status: Other, See Comment Respiratory Status: Other, See Comment Level of Consciousness/Mental Status: Can Participate in Eval Pain Control: Adequate, Prn Tx Ordered Nausea/Vomiting Control: Adequate, Prn Tx Ordered Complications Possibly Related to Anesthesia: None Noted (Doing fairly well. Got 2 more units of prbcs. Hgb 9.8. Platelets continue to be a little low 60k. Probably transferring to [facility] today. Plan to wait til tomorrow to pull epidural cath, assuming platelets are improving or at least stable.)
--- NOTE | 2017-04-09 14:26 | PDINTPN ---
Job Spotter Progress Note Assessment/Plan: Assessment: Status post bleed secondary to retained placenta. Head subsequent hysterectomy. Doing well now. Possibly had DIC versus dilutional. Hematocrit stable. Platelets 60. Plan: Continue care. Plans per OB at this point. Patient can transfer back to mom baby from my standpoint. I will sign off. Subjective: Feels much better. Nausea resolved. Denies significant shortness of breath. Pain well controlled on [employer]. Some tracheal irritation from anesthesia. Baby at her side Objective: Vital Signs Temp Pulse Resp BP Pulse Ox 36.6 C 70 18 104/67 97 04/09/17 12:30 04/09/17 12:30 04/09/17 12:30 04/09/17 12:30 04/09/17 12:30 Laboratory Results 04/09/17 04:05 04/09/17 04:05 04/08/17 04/09/17 04/10/17 05:59 05:59 05:59 Intake Total 9985 8475 Output Total 5170 6900 1600 Balance 4815 1575 -1600 PT 16.5 SEC (12.0-15.0) H 04/08/17 12:35 INR 1.33 (0.83-1.16) H 04/08/17 12:35 Physical Exam - Physical Exam General Appearance: alert, no apparent distress EENT: other (Nasal cannula at 2 L) Neck: normal inspection Respiratory: lungs clear Cardiac/Chest: regular rate, rhythm Abdomen: non-tender (Upper abdomen. Lower abdomen not assessed), soft, No normal bowel sounds (Present, decreased) Pelvic Exam: other (Oakley in place. Excellent urine output) Skin: normal color, warm/dry Extremities: No pedal edema Neuro/Psych: no motor/sensory deficits, No cognition abnormalities ICD10 Worksheet Patient Problems: Problems Problem Status Onset Post-dates Acute (spontaneous vaginal delivery) Acute PPH ( hemorrhage) Acute
[2017-04-09 15:17] LABS: % IMMATURE GRANULYOCYTES 1.1 % (0.0-1.1); ABSOLUTE IMMATURE GRANULOCYTES 0.14 10^3/uL (0.00-0.10); ADD DIFF? NO; ADD MORPH? NO; ADD SCAN? NO; ATYPICAL LYMPHOCYTE FLAG 0 (0-99); FRAGMENT RBC FLAG 0 (0-99); HEMATOCRIT 25.7 % (38.0-47.0); HEMOGLOBIN 9.1 g/dL (12.6-16.3); LEFT SHIFT FLG 10 (0-99); LIPEMIA HEMOLYSIS FLAG 90 (0-99); MEAN CELL HEMOGLOBIN 30.6 pg (27.9-34.1); MEAN CELL HEMOGLOBIN CONCENTR. 35.4 g/dL (32.4-36.7); MEAN CELL VOLUME 86.5 fL (81.5-99.8); MEAN PLATELET VOLUME 10.5 fL (8.7-11.7); PLATELET CLUMPS FLAG 0 (0-99); PLATELET COUNT 72 10^3/uL (150-400); RED BLOOD CELL COUNT 2.97 10^6/uL (4.18-5.33); RED CELL DISTRIBUTION WIDTH 15.9 % (11.5-15.2)
[2017-04-09 15:24] LABS: PLATELET COUNT 78 10^3/uL (150-400)
[2017-04-09 15:29] LABS: APTT 23.5 SEC (23.0-38.0); INR 1.03 (0.83-1.16); PROTIME(PATIENT) 13.4 SEC (12.0-15.0)
[2017-04-09 15:30] LABS: FIBRINOGEN 295 mg/dL (214-456)
--- NOTE | 2017-04-09 15:35 | SOAPPROG ---
SOAP Progress Note Assessment/Plan: Assessment: 37 yo ppd/POD# 2 s/p followed by abdominal supracervical hysterectomy for massive post hemorrhage anemia -asyptomatic after additional 2 units pumping rh negative - baby rh positive bleeding at epidural site platelets increasing Plan: increase activity iron close observation anesthesia to assess epidural site replace brunner 04/09/17 15:31 Subjective: patient is doing well. brunner catheter was removed prematurely in ICU and patient had significant pain with bladder distention. brunner replaced and pain has resolved. bleeding at epidural site was noted. labs repeated. platelets are improving. denies headache and changes in vision. tolerating diet. good urine production. will work on increasing activity. Objective: Vital Signs Temp Pulse Resp BP Pulse Ox 36.6 C 70 18 104/67 97 04/09/17 12:30 04/09/17 12:30 04/09/17 12:30 04/09/17 12:30 04/09/17 12:30 Laboratory Results 04/09/17 15:05 04/09/17 04:05 04/08/17 04/09/17 04/10/17 05:59 05:59 05:59 Intake Total 9985 8475 Output Total 5170 6900 1600 Balance 4815 1575 -1600 PT 13.4 SEC (12.0-15.0) 04/09/17 15:05 INR 1.03 (0.83-1.16) 04/09/17 15:05 Physical Exam - Physical Exam General Appearance: WD/WN, alert, no apparent distress Neck: non-tender, full range of motion, supple Respiratory: chest non-tender, lungs clear, normal breath sounds Cardiac/Chest: normal peripheral pulses, regular rate, rhythm Abdomen: normal bowel sounds, non-tender, soft Pelvic Exam: deferred Skin: normal color, warm/dry, other (incision clean dry and intact) Extremities: normal range of motion, non-tender, normal inspection, normal capillary refill Neuro/Psych: no motor/sensory deficits, alert, normal mood/affect, oriented x 3 ICD10 Worksheet Patient Problems: Problems Problem Status Onset PPH ( hemorrhage) Acute Post-dates Acute (spontaneous vaginal delivery) Acute
[2017-04-09] MEDS: SIMETHICONE 80 MG TAB CHEW PO PRN ×2 (16:05→23:59)
--- NOTE | 2017-04-09 16:18 | SOAPPROG ---
SOAP Progress Note Assessment/Plan: Assessment: S/P hysterectomy following bleed post vaginal delivery. Called to look at bleeding around epidural site. Site examined and blood present under dressing. Appears old without active bleeding. Neruro function normal in lower extremities. Risks of possible epidural hematoma with pulling catheter discussed. Pt agrees waiting for improved coagulation status. Plan: Check platelet count in morning. Consider pulling epidural catheter when over 90 - 100k. Pt instructed to notify if any change in neruo function or pain etc. Will change dressing to allow for assessment of new bleeding. 04/09/17 16:10 Objective: Vital Signs Temp Pulse Resp BP Pulse Ox 36.6 C 70 18 104/67 97 04/09/17 12:30 04/09/17 12:30 04/09/17 12:30 04/09/17 12:30 04/09/17 12:30 Laboratory Results 04/09/17 15:05 04/09/17 04:05 04/08/17 04/09/17 04/10/17 05:59 05:59 05:59 Intake Total 9985 8475 Output Total 8525 6820 1600 Balance 4815 1575 -1600 PT 13.4 SEC (12.0-15.0) 04/09/17 15:05 INR 1.03 (0.83-1.16) 04/09/17 15:05 ICD10 Worksheet Patient Problems: Problems Problem Status Onset PPH ( hemorrhage) Acute Post-dates Acute (spontaneous vaginal delivery) Acute
[2017-04-09] MEDS: HYDROmorphONE/DILAUDID 1 MG/ML SYR IVP PRN ×2 (19:53→23:54)
[2017-04-10] MEDS: ALPRAZolam 0.5 MG TAB PO SCH ×2 (00:10→02:09)
[2017-04-10] MEDS: HYDROCODONE/APAP 5/325 TAB PO PRN (00:48)
[2017-04-10] MEDS: SENNOSIDES/DOCUSATE SODIUM TAB PO SCH ×2 (02:03→08:32)
[2017-04-10] MEDS: HYDROmorphONE/DILAUDID 1 MG/ML SYR IVP PRN (02:04)
[2017-04-10] MEDS: OXYCODONE/APAP 5/325 TAB PO PRN ×6 (04:43→23:16)
[2017-04-10 06:22] LABS: % IMMATURE GRANULYOCYTES 1.1 % (0.0-1.1); ABSOLUTE IMMATURE GRANULOCYTES 0.11 10^3/uL (0.00-0.10); ADD DIFF? NO; ADD MORPH? NO; ADD SCAN? NO; ATYPICAL LYMPHOCYTE FLAG 0 (0-99); FRAGMENT RBC FLAG 0 (0-99); HEMATOCRIT 23.6 % (38.0-47.0); HEMOGLOBIN 8.2 g/dL (12.6-16.3); LEFT SHIFT FLG 10 (0-99); LIPEMIA HEMOLYSIS FLAG 90 (0-99); MEAN CELL HEMOGLOBIN 31.1 pg (27.9-34.1); MEAN CELL HEMOGLOBIN CONCENTR. 34.7 g/dL (32.4-36.7); MEAN CELL VOLUME 89.4 fL (81.5-99.8); MEAN PLATELET VOLUME 9.9 fL (8.7-11.7); PLATELET CLUMPS FLAG 0 (0-99); PLATELET COUNT 63 10^3/uL (150-400); RED BLOOD CELL COUNT 2.64 10^6/uL (4.18-5.33)
[2017-04-10] MEDS: IRON POLYSAC/IRON HEME 28 MG TAB PO SCH ×2 (08:31→23:54)
[2017-04-10] MEDS: BISACODYL 5 MG EC TAB PO SCH ×2 (12:29→19:19)
--- NOTE | 2017-04-10 18:27 | OBPP ---
Progress Note Assessment/Plan: Assessment: POD 3 s/p supracervical hysterectomy s/p with significant hemorrhage asymptomatic after multiple transfusions constipated, chronic and worsened after delivery - no BM in 5 days anemia with normal HR, not dizzy breast feeding Plan: increase efforts to help bowel function recheck labs in am 04/10/17 18:19 Subjective: Pt doing ok but seeming to have more pain with bowel distension - and miserable with not having BM yet. No nausea but not eating much. Sat up on chair and wasn't more dizzy. BF well - producing some colostrum. Bld is scant. Has had some bowel fxn after enema but still uncomfortable. So grateful to be alive. Objective: 04/10/17 06:05 04/09/17 04:05 Patient ABO/Rh A NEGATIVE 04/08/17 00:50 Total Bilirubin 0.4 mg/dL (0.1-1.4) D 04/09/17 04:05 Conjugated Bilirubin 0.1 mg/dL (0.0-0.5) 04/09/17 04:05 Unconjugated Bilirubin 0.3 mg/dL (0.0-1.1) 04/09/17 04:05 AST 62 IU/L (14-46) H 04/09/17 04:05 ALT 65 IU/L (9-52) H 04/09/17 04:05 Temp Pulse Resp BP Pulse Ox 36.6 C 47 L 16 104/62 97 04/10/17 10:06 04/10/17 10:06 04/10/17 06:00 04/10/17 10:06 04/10/17 10:06 Physical Exam - Physical Exam General Appearance: WD/WN, alert Abdomen: normal bowel sounds, soft, distended, incision (CDI - no drainage) Extremities: normal range of motion, non-tender, pedal edema (mild) Back: Other (some serosang drainage from MARLO drsg) Neuro/Psych: alert, normal mood/affect
[2017-04-10] MEDS: FERROUS GLUCONATE PO SCH (20:56)
[2017-04-11] MEDS: ALPRAZolam 0.5 MG TAB PO SCH ×2 (00:05→14:56)
[2017-04-11 00:38] VITALS: O2SAT 94
[2017-04-11] MEDS ORDERED: oxyCODONE IR 5 MG TAB PO PRN (02:15)
[2017-04-11] MEDS: OXYCODONE/APAP 5/325 TAB PO PRN ×4 (03:14→17:43)
[2017-04-11 06:17] LABS: HEMATOCRIT 25.6 % (38.0-47.0); HEMOGLOBIN 8.7 g/dL (12.6-16.3); MEAN CELL HEMOGLOBIN 30.9 pg (27.9-34.1); MEAN CELL VOLUME 90.8 fL (81.5-99.8); RED BLOOD CELL COUNT 2.82 10^6/uL (4.18-5.33); RED CELL DISTRIBUTION WIDTH 15.8 % (11.5-15.2)
[2017-04-11 06:23] LABS: PLATELET COUNT 91 10^3/uL (150-400)
[2017-04-11 06:36] LABS: INR 1.02 (0.83-1.16); PROTIME(PATIENT) 13.3 SEC (12.0-15.0)
[2017-04-11 06:38] LABS: APTT 26.2 SEC (23.0-38.0)
[2017-04-11 06:39] LABS: FIBRINOGEN 229 mg/dL (214-456)
--- NOTE | 2017-04-11 08:20 | OBPP ---
Progress Note Assessment/Plan: Assessment: 1) s/p with significant hemorrhage, s/p supracervical hysterectomy POD #4 - pt is stable 2) Anemia - s/p multiple transfusions, asymptomatic 3) Constipation, chronic - minimal relief with Fleets enema x 1 Plan: Continue routine post-op care Encourage ambulation and IS Will start Motrin along with Percocet for better pain control Remove brunner later this morning Cristiane to be removed later today, pt may shower if up to it Plt are up to 91; epidural cath fell out, no bleeding noted from site 04/11/17 08:26 Subjective: Pt seen and examined. She is very tired and not sleeping well. Pain is "normal" , mostly controlled with Percocet. She has been OOB to commode, tolerating regular diet, brunner in place, passing flatus and small BM noted after enema yesterday. Denies any f/c/n/v/CP or SOB. Denies any dizziness or lightheadedness. Moderate lochia. BF and pumping - only notes colostrum. Objective: 04/11/17 06:05 04/09/17 04:05 Patient ABO/Rh A NEGATIVE 04/08/17 00:50 Total Bilirubin 0.4 mg/dL (0.1-1.4) D 04/09/17 04:05 Conjugated Bilirubin 0.1 mg/dL (0.0-0.5) 04/09/17 04:05 Unconjugated Bilirubin 0.3 mg/dL (0.0-1.1) 04/09/17 04:05 AST 62 IU/L (14-46) H 04/09/17 04:05 ALT 65 IU/L (9-52) H 04/09/17 04:05 Temp Pulse Resp BP Pulse Ox 37.2 C 75 18 107/64 94 04/11/17 00:35 04/11/17 00:35 04/11/17 00:35 04/11/17 00:35 04/11/17 00:35 Uterine Position/Fundal Height: Umbilicus -2 Uterine Tone: Firm Physical Exam - Physical Exam General Appearance: WD/WN, alert, no apparent distress Respiratory: lungs clear, normal breath sounds Cardiac/Chest: regular rate, rhythm Abdomen: normal bowel sounds, soft, distended (mild), flatus (+), incision (C/D/ I with cristiane), other (appropriate tenderness) Extremities: non-tender, normal inspection (+SCDs) Skin: normal color, warm/dry Neuro/Psych: alert, normal mood/affect, oriented x 3
[2017-04-11] MEDS ORDERED: L.Acidoph,Paracasei, B.Lactis [Probiotic] 1 EACH PO SCH (09:00)
[2017-04-11] MEDS: IBUPROFEN 600 MG TAB PO PRN ×2 (10:12→20:00)
[2017-04-11] MEDS: BISACODYL 5 MG EC TAB PO SCH ×3 (10:13→23:56)
[2017-04-11] MEDS: FERROUS GLUCONATE PO SCH ×2 (10:14→20:02)
[2017-04-11] MEDS: IRON POLYSAC/IRON HEME 28 MG TAB PO SCH (10:15)
[2017-04-11] MEDS: SENNOSIDES/DOCUSATE SODIUM TAB PO SCH (18:25)
[2017-04-11] MEDS: HYDROCODONE/APAP 5/325 TAB PO PRN ×2 (23:17→23:19)
[2017-04-12] MEDS: ALPRAZolam 0.5 MG TAB PO SCH ×2 (00:23→08:48)
[2017-04-12] MEDS: IRON POLYSAC/IRON HEME 28 MG TAB PO SCH ×3 (00:44→08:53)
[2017-04-12] MEDS: IBUPROFEN 600 MG TAB PO PRN ×3 (01:55→15:02)
[2017-04-12] MEDS: OXYCODONE/APAP 5/325 TAB PO PRN ×3 (04:29→13:22)
[2017-04-12] MEDS: SENNOSIDES/DOCUSATE SODIUM TAB PO SCH (04:31)
[2017-04-12] MEDS: FERROUS GLUCONATE PO SCH (08:55)
[2017-04-12] MEDS: BISACODYL 5 MG EC TAB PO SCH (09:35)
[2017-04-12 10:29] VITALS: BP 113/76; PULSE 61; RESP 16; TEMP 98.4
--- NOTE | 2017-04-12 15:04 | OBPP ---
Progress Note Assessment/Plan: Assessment: 37 yo ppd/POD# 5 s/p followed by abdominal supracervical hysterectomy for massive post hemorrhage anemia -asymptomatic after additional 2 units pumping rh negative - baby rh positive Plan: increase activity iron discharge instructions 04/12/17 15:01 Subjective: patient is doing well. pain is controlled. worked with PT yesterday and ambulated a lot and was able to walk the stairs. no vaginal bleeding. is still only getting clostrum with pumping. mood feels stable. discussed working with therapist who specializes with trauma. denies headache and changes in vision. still feels constipated. taking stool softeners. voiding without difficulty. Objective: 04/11/17 06:05 04/09/17 04:05 Patient ABO/Rh A NEGATIVE 04/08/17 00:50 Total Bilirubin 0.4 mg/dL (0.1-1.4) D 04/09/17 04:05 Conjugated Bilirubin 0.1 mg/dL (0.0-0.5) 04/09/17 04:05 Unconjugated Bilirubin 0.3 mg/dL (0.0-1.1) 04/09/17 04:05 AST 62 IU/L (14-46) H 04/09/17 04:05 ALT 65 IU/L (9-52) H 04/09/17 04:05 Temp Pulse Resp BP Pulse Ox 36.9 C 61 16 113/76 94 04/12/17 09:45 04/12/17 09:45 04/12/17 09:45 04/12/17 09:45 04/12/17 09:45 Physical Exam - Physical Exam General Appearance: WD/WN, alert, no apparent distress Neck: non-tender, full range of motion, supple Respiratory: chest non-tender, lungs clear, normal breath sounds Cardiac/Chest: normal peripheral pulses, regular rate, rhythm Abdomen: normal bowel sounds, non-tender, soft Extremities: normal range of motion, non-tender, normal inspection, normal capillary refill Skin: normal color, warm/dry, other (incision clean dry and intact) Neuro/Psych: no motor/sensory deficits, alert, normal mood/affect, oriented x 3
--- NOTE | 2017-04-12 15:13 | OBGCSDC ---
General Delivery Information - General Info : 3 Para: 2 Delivery Physician/CNM: Natali Moreno Labs: Patient ABO/Rh A NEGATIVE 04/08/17 00:50 Hct 25.6 % (38.0-47.0) L 04/11/17 06:05 Vaginal - Diagnosis Labor: Induced Rupture of Membranes Type: Artificial Amniotic Fluid Color: Clear Laceration: 1st Degree Repair: 3-0 Delivery Events: Post Hemorrhage, Retained Placenta - Operations/Procedures Non-surgical Procedures: [facility] L&D Analgesia/Anesthesia Type: Epidural, General - Hospital Course Antepartum: hx pf retained placenta, pph hemorrhaga and d and c with G1. size greater than dates during . desired elective induction Intrapartum: uncomplicated delivery of baby. placenta manually removed. small piece of retained placenta removed without difficulty. tear in right side of uterine wall. significant post hemorrhage. taken to the OR for suction d and c - no retained products of conception. backeri ballon placed. patient bled around balloon. IR team was en route when patient because unstable. decision make to do a post hysterectomy. hyst done. total EBL around [id number] cc. patient transfused 8 units PRBC, 2 packs platelets, FFP, cryoprecipitate. : recieved 2 units prbcs post . was in ICU x 2 day. slowely increased activity and progressed. pumping. low milk supply. - Delivery Non-surgical Procedures: [facility] L&D Analgesia/Anesthesia Type: Epidural, General [place] [facility] Delivery Date: 04/07/17 Delivery Time: 18:59 SHELBY: 04/08/17 Gestational Age: 40 week(s) and 4 day(s) Sex of Infant: Female [place] Weight (gm): 4246 kg Score (1 Min): 8 Score (5 Min): 9 Discharge Information - Discharge Information Discharge Medications: Iron, Oxycodone, Vitamins Condition: Good Instruction/Follow Up: Two Weeks, Six Weeks Discharge Physician/CNM: Natali Moreno
== END 2017-04-12 18:15 | disposition home or self-care (01) | DRG 767 ==
LOC: FLD 06:19 → F2N 23:55 → FOB 04-09 13:00
PROVIDERS: ADMIT Obstetrics & Gynecology; ATTEND Obstetrics & Gynecology
PROC: 10E0XZZ Delivery of Products of Conception, External Approach (ICD-10-PCS; principal; 2017-04-07)
PROC: 10907ZC Drainage of Amniotic Fluid, Therapeutic from Products of Conception, Via Natural or Artificial Opening (ICD-10-PCS; principal; 2017-04-07)
PROC: 0UTC0ZZ Resection of Cervix, Open Approach (ICD-10-PCS; principal; 2017-04-07)
PROC: 0KQM0ZZ Repair Perineum Muscle, Open Approach (ICD-10-PCS; principal; 2017-04-07)
PROC: 0W3R7ZZ Control Bleeding in Genitourinary Tract, Via Natural or Artificial Opening (ICD-10-PCS; principal; 2017-04-07)
PROC: 3E033VJ Introduction of Other Hormone into Peripheral Vein, Percutaneous Approach (ICD-10-PCS; principal; 2017-04-07)
PROC: 0UT90ZZ Resection of Uterus, Open Approach (ICD-10-PCS; principal; 2017-04-07)
PROC: 10D17ZZ Extraction of Products of Conception, Retained, Via Natural or Artificial Opening (ICD-10-PCS; principal; 2017-04-07)
DX: O72.0 Third-stage hemorrhage (principal); D62 Acute posthemorrhagic anemia; E87.1 Hypo-osmolality and hyponatremia; O99.824 Streptococcus B carrier state complicating childbirth; O99.02 Anemia complicating childbirth; O99.284 Endocrine, nutritional and metabolic diseases complicating childbirth; O70.1 Second degree perineal laceration during delivery; K59.09 Other constipation; O99.62 Diseases of the digestive system complicating childbirth; Z37.0 Single live birth; Z3A.39 39 weeks gestation of pregnancy
CPT/HCPCS: 97161-GP; 97530-GP; G0463; J0290; J0690; J1170; J2210; J2250; J2370; J2405; J2550; J2590; J2704; J3010; J3105; P9012; P9016; P9017; P9035; P9041